=== PATIENT | male | born 1950 | race Caucasian/White ===

== ENCOUNTER → 2016-08-26 | Day surgery (SDC) | payer OTHER ==
[~2016-08-26] MED LIST: ASPIRIN; ASPIRIN81 M2 PO; ATORVASTATIN CA10 MG PO; BUFFERIN EX ST500 MG; FLONASE 0.05% N16 G1; HYZAAR 100-25 T1 TAB; LOSARTAN POTASS50 MG PO; NASAL SPRAY30 M1; NEPHROCAPS CAPSU1 MG; OPANA10 MG; PANTOPRAZOLE SO40 MG PO; PERCOCET10; PROTONIX; VITAMIN B-6; ZOLOFT; ZYRTEC
--- NOTE | ~2016-08-26 | OR ---
Unit #: [id number] #: [id number] Patient: RASTA WONG [id number] [address] [address] [id number] MR#: [id number] NAME: RASTA WONG. ROOM: Date of Procedure: 08/26/2016 Admission Date: 08/26/2016 Surgeon: Aditya Justin M.D. : 1950 Attending Physician: Aditya Justin M.D. Primary Care Physician: Primary Care Physician No OPERATIVE REPORT PROCEDURE PERFORMED Colonoscopy with multiple snare polypectomies to cecum. INDICATIONS FOR PROCEDURE A 66-year-old gentleman with history of colon polyps in the past, undergoing colonoscopy for surveillance. MEDICATIONS Monitored anesthesia. POSTOPERATIVE FINDINGS 1. Colonoscopy completed to cecum, good prep. 2. Polyp, ascending colon, 5 to 6 mm, snared and sent for histopathology. 3. Polyp, transverse colon x4, 4 to 6 mm, snared and sent for histopathology. 4. Polyp, descending colon, 5 to 6 mm, snared and sent for histopathology. 5. Internal hemorrhoids. PLAN Given the multiplicity of polyps, recommend colonoscopy in 3 years. DESCRIPTION OF PROCEDURE The patient was explained of the procedure, risks, and benefits along with the risks and benefits of anesthesia. He was brought to the endoscopy room. Propofol anesthesia was given. Rectal exam was done, which was normal. Colonoscope was lubricated, passed up the rectum, advanced under direct vision all the way to the cecum. Cecum was identified by ileocecal valve and appendiceal orifice. I then started to pull the scope out carefully looking. Multiple polyps were seen as described. I retroflexed in the rectum, small hemorrhoids seen. The scope was gently pulled out. He tolerated it well. Dictated by... Piotr Smart/mirtha TD: 08/26/2016 13:12 JOB #: [id number] Unit #: [id number] #: [id number] Patient: RASTA WONG OPERATIVE REPORT Page 1 of 1 X Aditya Justin MD PROCEDURE OPERATIVE NOTE
== END | disposition home or self-care (01) ==
LOC: COPS 07:04
DX: Z12.11 Encounter for screening for malignant neoplasm of colon (principal); D12.2 Benign neoplasm of ascending colon; D12.3 Benign neoplasm of transverse colon; D12.4 Benign neoplasm of descending colon; K64.8 Other hemorrhoids; I10 Essential (primary) hypertension; F17.210 Nicotine dependence, cigarettes, uncomplicated; K21.9 Gastro-esophageal reflux disease without esophagitis; Z86.010 Personal history of colon polyps; Z87.11 Personal history of peptic ulcer disease; Z88.5 Allergy status to narcotic agent; Z91.040 Latex allergy status; Z91.048 Other nonmedicinal substance allergy status; Z79.82 Long term (current) use of aspirin; Z79.899 Other long term (current) drug therapy; Z98.1 Arthrodesis status; Z98.890 Other specified postprocedural states
CPT/HCPCS: 88305; J2250